=== PATIENT | female | born 1975 ===

== ENCOUNTER 2017-12-21 11:52 | Emergency (ER) | payer MEDICARE ==
[2017-12-21 12:03] VITALS: PULSE 72; O2SAT 98
--- NOTE | 2017-12-21 12:53 | ED PDOC ---
HPI: General Adult Time Seen by Provider: 12/21/17 12:31 Chief Complaint (Nursing): ENT Problem Chief Complaint (Provider): Painful Neck Mass History Per: Patient History/Exam Limitations: no limitations Onset/Duration Of Symptoms: Days (x1 month) Current Symptoms Are (Timing): Still Present Additional Complaint(s): 42 year old female with an extensive pmhx presents to the ED for evaluation of neck pain. 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 Patient reports recently going to [place] for a mass in her neck about a month ago, which is getting larger and more painful. She notes that the provider sent her here to have a CT maxillofacial and neck done with the diagnosis of swollen lymph nodes. PMD: [place], [place] Past Medical History Reviewed: Historical Data, Nursing Documentation, Vital Signs Vital Signs: Last Vital Signs Temp 98.5 F 12/21/17 12:00 Pulse 72 12/21/17 12:00 Resp 19 12/21/17 12:00 BP 120/76 12/21/17 12:21 Pulse Ox 98 12/21/17 15:37 - Medical History PMH: Asthma, CVA (x2), Depression, HTN, Hyperlipidemia Other PMH: ovarian cancer; angioma cavernosum - Surgical History Surgical History: Other surgeries: hysterectomy - Family History Family History: States: Hypertension - Social History Current smoker - smoking cessation education provided: Yes (heavy) Alcohol: None Drugs: Denies - Home Medications Home Medications: Ambulatory Orders Medication Instructions Recorded Acetaminophen/Butalbital/Caf 1 tab PO TID PRN #20 tab 11/03/17 [Fioricet] Amoxicillin/Clavulanate [Augmentin 1 tab PO BID #14 tab 12/21/17 875 MG-125 MG] Ibuprofen [Motrin] 600 mg PO Q6 #20 tab 12/21/17 - Allergies Allergies/Adverse Reactions: Allergies Allergy/AdvReac Type Severity Reaction Status Date / Time iodine Allergy RASH Verified 11/03/17 15:42 Review of Systems ROS Statement: Except As Marked, All Systems Reviewed And Found Negative Musculoskeletal: Positive for: Neck Pain (painful mass, getting larger) Physical Exam - Reviewed Nursing Documentation Reviewed: Yes Vital Signs Reviewed: Yes - Physical Exam Appears: Positive for: No Acute Distress Head Exam: Positive for: ATRAUMATIC, NORMOCEPHALIC Skin: Positive for: Normal Color, Warm, Dry Eye Exam: Positive for: Normal appearance ENT: Positive for: Normal ENT Inspection Neck: Negative for: Normal (tender boggy mobile roughly 3cm mass presumably a lymph node to right clavicle ) Cardiovascular/Chest: Positive for: Regular Rate, Rhythm Respiratory: Positive for: Normal Breath Sounds. Negative for: Accessory Muscle Use, Respiratory Distress Gastrointestinal/Abdominal: Positive for: Normal Exam, Soft. Negative for: Tenderness Back: Positive for: Normal Inspection Extremity: Positive for: Normal ROM Neurologic/Psych: Positive for: Alert, Oriented (x3). Negative for: Motor/ Sensory Deficits - Laboratory Results Result Diagrams: 12/21/17 12:58 12/21/17 12:58 - ECG O2 Sat by Pulse Oximetry: 98 (RA) Medical Decision Making Medical Decision Making: Time: 123 Initial Impression: lymphadenopathy Initial Plan: --CT maxillofacial w/o contrast --CT neck soft tissue --CMP --CBC with differential --CXR --Motrin 600 mg PO 1337 CXR Impression: No acute cardiopulmonary disease appreciated. 1502 CT neck soft tissue Impression: No significant suprahyoid lymphadenopathy. Majority of lymph nodes in the infrahyoid neck appear normal in size, however, there is an enlarged solitary lymph node at the right base at the posterior triangle approaching the supraclavicular fossa measuring 1.6 x 1.3 cm. ADDENDUM: Note is made of an additional mildly enlarged lymph node at the left jugular digastric level 3 space measuring 1.1 x [address] maxillofacial Impression: Unremarkable contrast enhanced CT of the maxillofacial bones. Incidental mild bilateral neck lymphadenopathy including upper left jugular digastric lymph node and a right neck posterior triangle base / supraclavicular lymph node as described above. No gross lymphadenopathy throughout the examination. Scribe Attestation: Documented by Jennifer Lopez, acting as a scribe for Tessa Kline PA-C. Provider Scribe Attestation: All medical record entries made by the Scribe were at my direction and personally dictated by me. I have reviewed the chart and agree that the record accurately reflects my personal performance of the history, physical exam, medical decision making, and the department course for this patient. I have also personally directed, reviewed, and agree with the discharge instructions and disposition. Pt given RX for Augmentin and Motrin. Advised ENT follow up Disposition - Clinical Impression Clinical Impression: Lymphadenopathy - Patient ED Disposition Is Patient to be Admitted: No - Disposition Referrals: Samir Castillo MD [Staff Provider] - Disposition: Routine/Home Disposition Time: 15:44 Condition: STABLE Prescriptions: Amoxicillin/Clavulanate [Augmentin 875 MG-125 MG] 1 tab PO BID #14 tab Ibuprofen [Motrin] 600 mg PO Q6 #20 tab Instructions: Chronic Lymphadenitis (DC) Forms: [employer] (Latvian), [facility] ED School/Work Excuse Print Language: SLOVENIAN
[2017-12-21 13:05] LABS: BASO % 0.8 % (0.0-2.0); EOS # 0.2 K/uL (0.0-0.7); EOS % 3.1 % (0.0-4.0); HEMOGLOBIN 14.5 g/dL (12.0-16.0); LYMPH # 2.3 K/uL (1.0-4.3); MEAN CELL VOLUME 87.9 fl (81.0-99.0); MEAN CORPUSCULAR HEMOGLOBIN 30.5 pg (27.0-31.0); MEAN CORPUSCULAR HGB CONC 34.7 g/dL (33.0-37.0); MEAN PLATELET VOLUME 10.4 fl (7.2-11.7); MONO # 0.5 K/uL (0.0-0.8); MONO % 9.3 % (0.0-10.0); NEUT # 2.2 K/uL (1.8-7.0); NEUT % 42.8 % (50.0-75.0); NRBC % 0.2 % (0.0-0.0); RBC 4.77 Mil/uL (3.80-5.20); RED CELL DISTRIBUTION WIDTH 13.7 % (11.5-14.5); WHITE BLOOD COUNT 5.2 K/uL (4.8-10.8)
[2017-12-21 13:28] LABS: ALB/GLOB RATIO 1.4 (1.0-2.1); ALBUMIN 4.5 g/dL (3.5-5.0); ALT/SGPT 41 U/L (9-52); AST/SGOT 34 U/L (14-36); BLOOD UREA NITROGEN 12 mg/dl (7-17); CALCIUM 9.2 mg/dL (8.4-10.2); GFR AFRICAN-AMERICAN > 60; GFR NON-AFRICAN AMERICAN > 60
--- NOTE | 2017-12-21 13:39 | RAD ---
Date of service: 12/21/2017 HISTORY: lymphadenopathy to clavicle COMPARISON: No prior. TECHNIQUE: Chest PA and lateral FINDINGS: LUNGS: No active pulmonary disease. PLEURA: No significant pleural effusion identified. No pneumothorax apparent. CARDIOVASCULAR: Normal. OSSEOUS STRUCTURES: No significant abnormalities. VISUALIZED UPPER ABDOMEN: Normal. OTHER FINDINGS: None. IMPRESSION: No acute cardiopulmonary disease appreciated.
[2017-12-21] MEDS ORDERED: Sodium Chloride 0.9% 50 ML IV ONE (13:50)
[2017-12-21] MEDS ORDERED: Iohexol 300 100 ML IJ ONE (13:50)
--- NOTE | 2017-12-21 15:04 | CT ---
Date of service: 12/21/2017 PROCEDURE: CT NECK WITH CONTRAST HISTORY: lymphadenopathy COMPARISON: None available. TECHNIQUE: CT of the neck with intravenous contrast. Coronal and sagittal reformats generated. Intravenous contrast dose: Omnipaque 300, 95 cc Radiation dose: DLP 324.82 mGy-cm This CT exam was performed using one or more of the following dose reduction techniques: Automated exposure control, adjustment of the mA and/or kV according to patient size, and/or use of iterative reconstruction technique. FINDINGS: NASOPHARYNX: Unremarkable. SUPRAHYOID NECK: Unremarkable oropharynx, oral cavity, parapharyngeal space and retropharyngeal space. INFRAHYOID NECK: Unremarkable larynx, hypopharynx, and supraglottic space. Vocal cords intact. MASS: None. GLANDS: Parotid and submandibular glands unremarkable. Normal size thyroid gland, without nodule. LYMPH NODES: No significant suprahyoid lymphadenopathy appreciated. There is a solitary enlarged lymph node identified at the posterior triangle right neck approaching the supraclavicular fossa measuring 1.6 x 1.3 cm. CERVICAL SPINE: No fracture or focal lesion. VASCULAR STRUCTURES: Unremarkable. OTHER FINDINGS: Jewelry piercing identified supra at the superolateral right periorbital soft tissues. Limited reticular change in question in the bilateral pulmonary apices however imaging is somewhat obscured by respiratory motion artifact. IMPRESSION: No significant suprahyoid lymphadenopathy. Majority of lymph nodes in the infrahyoid neck appear normal in size, however, there is an enlarged solitary lymph node at the right neck base at the posterior triangle approaching the supraclavicular fossa measuring 1.6 x 1.3 cm.
--- NOTE | 2017-12-21 15:17 | CT ---
Date of service: 12/21/2017 PROCEDURE: CT MAXILLOFACIAL BONES WITH CONTRAST HISTORY: lymphadenopathy COMPARISON: None. TECHNIQUE: Contiguous axial CT images of the maxillofacial bones were obtained following administration of IV contrast. Coronal and sagittal reformats were generated. Intravenous contrast Dose: Omnipaque 300, 95 cc (same injection as neck CT with contrast performed on this patient also 12/21/2017) Radiation dose: Total exam DLP = 324.[address] also performed 12/21/2017, not an additive dose mGy-cm. This CT exam was performed using one or more of the following dose reduction techniques: Automated exposure control, adjustment of the mA and/or kV according to patient size, and/or use of iterative reconstruction technique. FINDINGS: NASAL BONES: Unremarkable. ORBITS: Unremarkable. PARANASAL SINUSES/ MASTOIDS: Clear. MAXILLA: Unremarkable. MANDIBLE/ TEMPOROMANDIBULAR JOINTS: Unremarkable. SKULL BASE: Unremarkable. TEMPORAL BONES: Middle ears and mastoid grossly unremarkable. OTHER FINDINGS: The soft tissues appear diffusely unremarkable. Limited lymphadenopathy is reiterated at the right posterior triangle base/supraclavicular fossa where 1.6 x 1.3 cm lymph node is enlarged. Note is made of an additional mildly enlarged lymph node at the left jugular digastric level 3 space measuring 1.1 x 1.8 cm. IMPRESSION: Unremarkable contrast enhanced CT of the maxillofacial bones. Incidental mild bilateral neck lymphadenopathy including upper left jugular digastric lymph node and a right neck posterior triangle base/supraclavicular lymph node as described above. No gross lymphadenopathy throughout the examination.
[2017-12-21 17:13] VITALS: BP 130/71; RESP 18; TEMP 98.1
== END 2017-12-21 15:44 | disposition home or self-care (01) ==
LOC: H.ER 11:52
DX: R59.9 Enlarged lymph nodes, unspecified (principal); E78.5 Hyperlipidemia, unspecified; I10 Essential (primary) hypertension; Z85.43 Personal history of malignant neoplasm of ovary; Z86.73 Personal history of transient ischemic attack (TIA), and cerebral infarction without residual deficits
CPT/HCPCS: 70488; 70491; 71046; 80053; 81025; 85025; 99282; Q9967